=== PATIENT | male | born 1965 | race African-American/Black ===

== ENCOUNTER 2018-10-31 15:19 | Emergency (ER) | payer OTHER ==
[~2018-10-31] VITALS: Ht 177.8 cm; Wt 118.4 kg
[2018-10-31 15:23] VITALS: Ht 177.8 cm; Wt 118.4 kg
[2018-10-31 16:29] VITALS: BP 129/88
== END 2018-10-31 16:29 | disposition home or self-care (01) ==
LOC: ED 15:19
DX: S60.222A Contusion of left hand, initial encounter (principal); Z95.5 Presence of coronary angioplasty implant and graft; Z79.01 Long term (current) use of anticoagulants; W20.8XXA Other cause of strike by thrown, projected or falling object, initial encounter; Y93.89 Activity, other specified; Y92.89 Other specified places as the place of occurrence of the external cause; Y99.8 Other external cause status
CPT/HCPCS: Q0092